=== PATIENT | female | born 1990 | race Caucasian/White ===

== ENCOUNTER 2018-04-02 23:08 | Emergency (ER) | payer MEDICAID ==
[~2018-04-02] VITALS: Ht 167.6 cm; Wt 66.2 kg
[~2018-04-02 23:08] MED LIST: ALBU90OI INH; AMIT50 PO; BIRTH CONTROL PILL; CARB50; CETI10 PO; CIPR500 PO; CLAR500 PO; CYCL10 PO; Cleocin HCl300 MG PO; DIPH50 PO; DOCU100 PO; ERGO400 PO; FAMO40 PO; Flagyl500 MG PO; HYDMOR2 PO; IBUP600 PO; IBUP800 PO; LEVSOD100 PO; MELO7.5 PO; NAPR500 PO; NITR100CA PO; OMEP20ER PO; ONDA4 PO; OXYACE5T PO; PHENA200 PO; PRED20 PO; PREN-16 PO; PRENATAL 19 TA1 EACH PO; PROM25 PO; Pepcid40 MG PO; Prenatabs Rx T1 EACH PO; SUCR1 PO; Silvadene20 GM TOP; Sprintec1 EACH PO; TRAM50 PO; Zofran4 MG PO
[2018-04-02] MEDS ORDERED: ZIPR20 PO (23:44)
[2018-04-02] MEDS ORDERED: Prozac20 MG PO (23:44)
[2018-04-02 23:55] LABS: BASOPHILS ABSOLUTE AUTO 0.06 K/mm3 (0.00-0.23); BASOPHILS PERCENT AUTO 1 % (0-2); EOSINOPHILS ABSOLUTE AUTO 0.01 K/mm3 (0.00-0.68); EOSINOPHILS PERCENT AUTO 0 % (0-6); Hematocrit 37.1 % (33.0-51.0); Hemoglobin 12.6 g/dL (11.5-16.0); IMMATURE GRAN ABSOLUTE AUTO 0.01 K/mm3 (0.00-0.10); IMMATURE GRAN PERCENT AUTO 0 % (0-1); LYMPHOCYTES ABSOLUTE AUTO 1.92 K/mm3 (0.84-5.20); LYMPHOCYTES PERCENT AUTO 22 % (21-46); MONOCYTES ABSOLUTE AUTO 0.49 K/mm3 (0.16-1.47); MONOCYTES PERCENT AUTO 6 % (4-13); Mean Corpuscular HGB 29.6 pg (26.0-34.0); Mean Corpuscular Volume 87 fL (80-100); Mean Platelet Volume 11.1 fL (9.1-12.4); NEUTROPHILS ABSOLUTE AUTO 6.19 K/mm3 (1.96-9.15); NEUTROPHILS PERCENT AUTO 71 % (41-73); Platelet Count 214 K/mm3 (150-400); RDW Coefficient Variation 12.3 % (11.7-14.2); RDW Standard Deviation 39.5 fL (35.1-46.3); Red Blood Cell Count 4.25 M/mm3 (3.80-5.20); White Blood Cell Count 8.68 K/mm3 (4.00-11.30)
[2018-04-03 00:12] LABS: Alanine Aminotransfer (ALT/SGP 21 U/L (12-78); Albumin, Blood 4.7 g/dL (3.4-5.0); Albumin/Globulin Ratio 1.7 (0.8-1.8); Alk Phos 47 U/L (50-136); Anion Gap 16 mmol/L (6-16); Aspartate Aminotrans (AST/SGOT 16 U/L (12-37); Bilirubin, Total 1.5 mg/dL (0.1-1.0); Blood Urea Nitrogen 16 mg/dL (8-24); Bun/Creatinine Ratio 21.9 (12.0-20.0); CO2, Blood 19 mmol/L (21-32); Calcium, Blood 8.9 mg/dL (8.5-10.1); Chloride, Blood 103 mmol/L (98-108); Creatinine, Blood 0.73 mg/dL (0.40-1.00); Globulin, Blood 2.7 g/dL (2.2-4.0); Glomerular Filtration Rate >60 (60-); Glucose, Blood 99 mg/dL (70-99); Magnesium, Blood 1.8 mg/dL (1.6-2.4); Potassium, Blood 3.4 mmol/L (3.5-5.5); Sodium, Blood 138 mmol/L (136-145); Total Protein, Blood 7.4 g/dL (6.4-8.2)
[2018-04-03] MEDS ORDERED: Zofran Odt4 MG SL (01:27)
[2018-04-03] MEDS ORDERED: Pepcid20 MG PO (01:27)
== END 2018-04-03 01:50 | disposition home or self-care (01) ==
LOC: ER 23:08
PROVIDERS: Emergency Medicine
DX: R11.2 Nausea with vomiting, unspecified (principal); E86.0 Dehydration; Z88.5 Allergy status to narcotic agent; Z91.018 Allergy to other foods; Z88.0 Allergy status to penicillin; E03.9 Hypothyroidism, unspecified; Z79.899 Other long term (current) drug therapy
CPT/HCPCS: 36415; 80053; 83690; 83735; 85025; J1885; J2405; J7030

== ENCOUNTER 2019-05-14 11:31 | Emergency (ER) | payer OTHER ==
[~2019-05-14] VITALS: Ht 167.6 cm; Wt 52.6 kg
[~2019-05-14 11:31] MED LIST changes: +NP THYROID90 MG; +Pepcid20 MG PO; +Prozac20 MG PO; +ZIPR20 PO; +Zofran Odt4 MG SL
[2019-05-15] MEDS ORDERED: Augmentin 875-1 EACH PO (18:58)
== END 2019-05-14 13:11 | disposition home or self-care (01) ==
LOC: ER 11:31
DX: S61.012A Laceration without foreign body of left thumb without damage to nail, initial encounter (principal); Z23 Encounter for immunization; Z88.5 Allergy status to narcotic agent; Z91.018 Allergy to other foods; X58.XXXA Exposure to other specified factors, initial encounter
CPT/HCPCS: 12001; 90471; 90714; 99282-25

== ENCOUNTER 2019-05-15 18:20 | Emergency (ER) | payer OTHER ==
[~2019-05-15] VITALS: Ht 167.6 cm; Wt 52.2 kg
[2019-05-15] MEDS ORDERED: Augmentin 875-1 EACH PO (18:58)
== END 2019-05-15 19:18 | disposition home or self-care (01) ==
LOC: ER 18:20
DX: S60.511A Abrasion of right hand, initial encounter (principal); S40.811A Abrasion of right upper arm, initial encounter; S61.412D Laceration without foreign body of left hand, subsequent encounter; E03.9 Hypothyroidism, unspecified; F17.210 Nicotine dependence, cigarettes, uncomplicated; Z91.018 Allergy to other foods; Z88.5 Allergy status to narcotic agent; Z79.899 Other long term (current) drug therapy; W55.03XA Scratched by cat, initial encounter
CPT/HCPCS: 99282

== ENCOUNTER 2020-03-17 15:06 | Emergency (ER) | payer OTHER ==
[~2020-03-17] VITALS: Ht 167.6 cm; Wt 55.3 kg
[~2020-03-17 15:06] MED LIST changes: +Augmentin 875-1 EACH PO
[2020-03-17] MEDS ORDERED: Ativan1 MG PO (16:24)
[2020-03-17] MEDS ORDERED: ZOLP5 PO (16:25)
[2020-03-17] MEDS ORDERED: BUPROPION XL150 M1 PO (16:25)
== END 2020-03-17 19:46 | disposition home or self-care (01) ==
LOC: ER 15:06
DX: S10.93XA Contusion of unspecified part of neck, initial encounter (principal); E03.9 Hypothyroidism, unspecified; Z79.899 Other long term (current) drug therapy; W11.XXXA Fall on and from ladder, initial encounter
CPT/HCPCS: 70450; 72125; 72141; 73030; 99284-25; L0160

== ENCOUNTER → 2020-07-25 | Outpatient (CLI) | payer BC, OTHER ==
[~2020-07-25] MED LIST changes: +Ativan1 MG PO; +BUPROPION XL150 M1 PO; +ZOLP5 PO
== END ==
LOC: LAB SHORT 10:38 → LAB 10:38
DX: N30.01 Acute cystitis with hematuria (principal)
CPT/HCPCS: 87077; 87086; 87186

== ENCOUNTER → 2021-01-30 | Outpatient (CLI) | payer BC, OTHER | END | disposition home or self-care (01) | LOC: LAB SHORT 09:34 → LAB 09:34 | DX: H60.02 Abscess of left external ear (principal) | CPT/HCPCS: 87070; 87075; 87205 ==

== ENCOUNTER → 2021-06-22 | Outpatient (CLI) | payer BC, OTHER | END | disposition home or self-care (01) | LOC: LAB 15:08 → LAB SHORT 15:08 | DX: N90.89 Other specified noninflammatory disorders of vulva and perineum (principal) | CPT/HCPCS: 88305 ==

== ENCOUNTER 2023-07-13 09:55 | Emergency (ER) | payer OTHER ==
[~2023-07-13] VITALS: Ht 167.6 cm; Wt 54.4 kg
[2023-07-13 10:26] VITALS: BP 109/74
[2023-07-13] MEDS ORDERED: METO10 PO (12:22)
== END 2023-07-13 12:32 | disposition home or self-care (01) ==
LOC: ER 09:55
DX: S06.0XAA Concussion with loss of consciousness status unknown, initial encounter (principal); R11.2 Nausea with vomiting, unspecified; W22.8XXA Striking against or struck by other objects, initial encounter; Z91.018 Allergy to other foods; Z88.5 Allergy status to narcotic agent; Z79.899 Other long term (current) drug therapy; E03.9 Hypothyroidism, unspecified
CPT/HCPCS: 70450; 72125; 96361; 96374; 99284-25; A9270; J2765; J7030

== ENCOUNTER → 2025-03-22 | Outpatient (CLI) | payer OTHER ==
[~2025-03-22] MED LIST changes: +METO10 PO
[2025-03-22 12:55] LABS: BASOPHILS ABSOLUTE AUTO 0.02 K/mm3 (0.00-0.23); BASOPHILS PERCENT AUTO 0 % (0-2); EOSINOPHILS ABSOLUTE AUTO 0.36 K/mm3 (0.00-0.68); EOSINOPHILS PERCENT AUTO 6 % (0-6); Hematocrit 40.4 % (33.0-51.0); Hemoglobin 14.2 g/dL (11.5-16.0); IMMATURE GRAN ABSOLUTE AUTO 0.02 K/mm3 (0.00-0.10); IMMATURE GRAN PERCENT AUTO 0 % (0-1); LYMPHOCYTES ABSOLUTE AUTO 0.85 K/mm3 (0.84-5.20); LYMPHOCYTES PERCENT AUTO 13 % (21-46); MONOCYTES ABSOLUTE AUTO 0.39 K/mm3 (0.16-1.47); MONOCYTES PERCENT AUTO 6 % (4-13); Mean Corpuscular HGB 30.6 pg (26.0-34.0); Mean Corpuscular HGB Conc 35.1 g/dL (31.5-36.5); Mean Corpuscular Volume 87 fL (80-100); Mean Platelet Volume 10.4 fL (9.1-12.4); NEUTROPHILS ABSOLUTE AUTO 4.92 K/mm3 (1.96-9.15); NEUTROPHILS PERCENT AUTO 75 % (41-73); Platelet Count 158 K/mm3 (150-400); RDW Coefficient Variation 11.9 % (11.7-14.2); RDW Standard Deviation 38.4 fL (35.1-46.3); Red Blood Cell Count 4.64 M/mm3 (3.80-5.20); White Blood Cell Count 6.56 K/mm3 (4.00-11.30)
[2025-03-22 13:14] LABS: Albumin, Blood 3.7 g/dL (3.4-5.0); Albumin/Globulin Ratio 1.1 (0.8-1.8); Bilirubin, Total 0.6 mg/dL (0.1-1.0); Bun/Creatinine Ratio 11.1 (12.0-20.0); Calcium, Blood 9.2 mg/dL (8.5-10.1); Creatinine, Blood 0.9 mg/dL (0.40-1.00); Globulin, Blood 3.5 g/dL (2.2-4.0); Potassium, Blood 3.6 mmol/L (3.5-5.5); Thyroid Stimulating Hormone 7.828 uIU/mL (0.360-4.800); Total Protein, Blood 7.2 g/dL (6.4-8.2)
== END | disposition home or self-care (01) ==
LOC: LAB 12:42 → LAB SHORT 12:42
PROVIDERS: Physician Assistant
DX: R82.81 Pyuria (principal); R11.2 Nausea with vomiting, unspecified; R53.83 Other fatigue; R50.9 Fever, unspecified
CPT/HCPCS: 80053; 83690; 84443; 85025; 87040; 87086